=== PATIENT | male | born 1995 | race Caucasian/White ===

== ENCOUNTER 2023-04-22 16:04 | Emergency (ER) | payer BC, SELFPAY ==
[2023-04-22 16:09] VITALS: BP 165/97; PULSE 107; RESP 18; TEMP 36.9; O2SAT 100; BMI 27.9
--- NOTE | 2023-04-22 16:17 | ED_ITS ---
HPI - General Adult General Chief complaint: Chest Pain Stated complaint: Chest pain, L shoulder numb, shaking Time Seen by Provider: 04/22/23 16:17 History of Present Illness HPI narrative: Pt exercising a few hours ago and started feeling dizzy, numbness down L arm, sweaty and the chills, accompanied with chest pain . Started cleaning afterwards and adrenaline mcrae got worse. Pt felt anxiety at the time as well. Still having L arm numbness 28 year old man presenting to the ER with concern of chest pain. Head had a usual vape of marijuana about an hour prior to exercising few hours ago. While exercising being and feels some soreness in his mid chest and stopped. This resolved in a few minutes. Went around picking up the house and then began to feel lightheaded feeling chilled cold and increasing chest tightness in the mid chest. Also then soreness into his left shoulder. He does recall history of injury and some instability in the left shoulder though. He does endorse feeling anxious. Has never had a panic attack. He describes feeling tingly in his hands or finger tips on his toes. Describes an adrenaline mcrae. Related Data Home Medications Medication Instructions Recorded Confirmed No Known Home Medications 04/22/23 04/22/23 Allergies Allergy/AdvReac Type Severity Reaction Status Date / Time No Known Drug Allergies Allergy Verified 04/22/23 16:12 Review of Systems Status of ROS: Reports: 6 or more systems reviewed and unremarkable except as noted in History and below [facility] Social History Smoking Status: Never smoker Do you use any of these nicotine containing products: None How often do you have a drink containing alcohol: 2-3 times a week How often do you have six or more drinks on one occasion: Never AUDIT-C Alcohol total score: 3 Non-prescribed substance use: marijuana (any form) Exam Narrative: Exam Narrative: Pleasant. Is calm at this time. Breathing easily. Lungs are clear. Breath sounds throughout. No supraclavicular crepitus. Heart in elevated rate but re gular rhythm. Moving all extremities without difficulty. No reproducible pain in his left shoulder. Equal pulses bilaterally the upper extremities. Well- perfused and without sensory deficits. Cranial nerves 2-12 intact. Const: Vital Signs, click to edit/add: Vital Signs - 24 hr 04/22/23 16:09 Temperature 98.4 F Pulse Rate [Right Pulse Oximeter] 107 H Respiratory Rate 18 Blood Pressure [Ri ght Upper Arm] 165/97 H Pulse Oximetry 100 Oxygen Delivery Me thod Room Air Documenting provider has reviewed patient's vital signs: yes Course Vital Signs Vital signs: Initial Vital Signs Temperature 98.4 F 04/22/23 16:09 Temperature Source Temporal Artery Scan 04/22/23 16:09 Pulse Rate 107 H 04/22/23 16:09 Pulse Rhythm Regular 04/22/23 16:09 Respiratory Rate 18 04/22/23 16:09 Blood Pressure 165/97 H 04/22/23 16:09 Blood Pressure Mean 119 H 04/22/23 16:09 Blood Pressure Position Semi-Fowlers 04/22/23 16:09 Pulse Oximetry 100 04/22/23 16:09 Oxygen Delivery Method Room Air 04/22/23 16:09 Vital Signs Temperature 98.4 F 04/22/23 16:09 Pulse Rate 107 H 04/22/23 16:09 Respiratory Rate 18 04/22/23 16:09 Blood Pressure 165/97 H 04/22/23 16:09 Pulse Oximetry 100 04/22/23 16:09 Oxygen Delivery Method Room Air 04/22/23 16:09 Temperature 98.4 F 04/22/23 16:09 Pulse Rate 107 H 04/22/23 16:09 Respiratory Rate 18 04/22/23 16:09 Blood Pressure 165/97 H 04/22/23 16:09 Pulse Oximetry 100 04/22/23 16:09 Oxygen Delivery Method Room Air 04/22/23 16:09 Medical Decision Making [facility] Narrative Medical decision making narrative: Really does sound like some unclear discomfort that then precipitated panic attack ring attack of anxiety of some sort. Pneumothorax though in differential. Certainly could been ischemic cardiac event. Perhaps dysrhythmia. Maybe reaction to or complicated by marijuana. No evidence of infection at this time. Will monitor on cardiac nurse specialist. Initial EKG is reassu ring other than tachycardia. Chest x-ray. Does not appear to need any medical intervention at this time. Perhaps was precipitated by some musculoskeletal/chest wall discomfort that is less reproducible now. Chest x-ray reviewed by me is WNL without pneumothorax. There is normal cardiac silhouette. No infiltrate appreciated Troponins negative. See patient discharge plan for further discussion Lab Data Lab results reviewed: Yes I reviewed the patient's lab results Labs: Lab Results 04/22/23 Range/Units 16:36 POC Troponin I 0.00 L (0.01-0.04) ng/ml ECG Data Attestation: I personally reviewed and interpreted this ECG as follows: (Sinus tachycardia. Indeed rightward axis. Rate of 107. Otherwise no acute ischemic changes or evidence) Discharge Plan Discharge Clinical Impression: Atypical chest pain, Anxiety attack Patient Disposition: Home w/ Parent or Adult Condition: Improved Additional Instructions: I do think escalating anxiety for what ever reason was the reason for the majority of your symptoms here today. I am happy you are feeling better. Stay active. Spend some time outside. Try to get quality and regular sleep. Stay well-hydrated. Sometimes it does help to talk to a professional therapist. Prescriptions: No Action No Known Home Medications Follow Up/Referrals: Provider,Not a Local [Primary Care Provider] - Stand Alone Forms: [employer] Info Instructions
--- NOTE | 2023-04-22 16:36 | XR_ITS ---
Patient: JACKIE FARMER Facility:?[facility] Patient ID:?[id number] Site Patient ID:?[id number]. Site :?[id number] Study:?XRay-Chest PORTABLE-04/22/2023 5:00:54 PM Ordering Physician:?DR LIU Final Report: Indication: Chest pain and tachycardia Technique: Single frontal view of the chest Comparison: None Findings: The cardiomediastinal silhouette and pulmonary vasculature are normal. No focal airspace consolidation, pleural effusion, or pneumothorax. The soft tissues and osseous structures are unremarkable. Impression: No acute cardiopulmonary process. Dictated by Rafael Castañeda MD @ 04/22/2023 5:25:26 PM Signed by:?Rafael Castañeda MD @04/22/2023 5:25:26 PM (Electronic Signature)
== END 2023-04-22 17:47 | disposition home or self-care (01) ==
PROVIDERS: Emergency Provider Family Medicine
DX: R07.9 Chest pain, unspecified (principal); F41.9 Anxiety disorder, unspecified
CPT/HCPCS: 71045; 84484; 93005; 99284